=== PATIENT | male | born 1975 | race Caucasian/White ===

== ENCOUNTER 2016-11-25 02:05 | Observation (INO) ==
[2016-11-25] MEDS ORDERED: *HR* OxyCODONE Immed Rel 5 MG TABLET PO PRN (03:51)
[2016-11-25] MEDS ORDERED: Benzonatate 100 MG CAPSULE PO PRN (03:51)
[2016-11-25] MEDS ORDERED: *HR* Promethazine 25 MG/ML VIAL IVP PRN (03:51)
[2016-11-25] MEDS ORDERED: Naloxone 0.4 MG/ML INJ IVP PRN (03:51)
[2016-11-25] MEDS ORDERED: *HR* Morphine 2 MG/ML SYRINGE IVP PRN (03:51)
--- NOTE | 2016-11-25 04:08 | Internal Med History&Physical ---
Date of Encounter: 11/25/16 Time of Encounter: 03:45 Assessment and Plan (1) Cholestasis Current visit: Yes Status: Acute . (2) Acute cholestatic jaundice syndrome Current visit: Yes Status: Acute . (3) IVDU (intravenous drug user) Current visit: Yes Status: Chronic . (4) Transaminitis Current visit: Yes Status: Acute . (5) Acute hepatitis Current visit: Yes Status: Acute . (6) Nicotine dependence with nicotine-induced disorder Current visit: Yes Status: Chronic . Qualifiers: Nicotine product type: cigarettes Qualified Code(s): F17.219 - Nicotine dependence, cigarettes, with unspecified nicotine-induced disorders (7) Cholangitis Current visit: Yes Status: Acute . (8) Polysubstance (including opioids) dependence with physiol dependence Current visit: Yes Status: Chronic . (9) At risk for withdrawal Current visit: Yes Status: Acute . (10) At risk for abuse of opiates Current visit: Yes Status: Chronic . (11) At risk for acid-base imbalance Current visit: Yes Status: Acute (12) At risk for acute confusion Current visit: Yes Status: Acute . (13) Toxic metabolic encephalopathy Current visit: Yes Status: Acute . (14) Delirium due to conditions classified elsewhere Current visit: Yes Status: Acute . (15) Cholecystitis without cholelithiasis Current visit: Yes Status: Acute . (16) Chronic pain associated with significant psychosocial dysfunction Current visit: Yes Status: Chronic . (17) DDD (degenerative disc disease) Current visit: Yes Status: Chronic . Qualifiers: Spinal region: lumbar Qualified Code(s): M51.36 - Other intervertebral disc degeneration, lumbar region (18) Iron deficiency Current visit: Yes Status: Acute . (19) Protein-calorie malnutrition Current visit: Yes Status: Acute . (20) Hyponatremia with decreased serum osmolality Current visit: Yes Status: Acute Internal Medicine - H&P: HPI Chief complaint: Yellowing of skin and white's of the eyes Admitted From: Hospital to Hospital Transfer (Hospital transfer [facility] ED) Plans for Post Hospital Care: Home History of present illness: Mr. Aiken is a 41 year old male with history significant for IVDU (heroin), Chr LBP/ MSK pain syndrome, DDD of Lumbar spine/spondylitis/radiculitis/facet arthropathy, nicotine dependency. The patient was visited and interviewed and examined. Patient is received as a hospital transfer from [facility] emergency department he presented with concerns of jaundiced state. He said he had noticed his urine has become darker over the past week. He denied however any urinary symptoms at this frequency or urgency dysuria pyuria or flank pain and hematuria. He notes that the whites of his eyes also seemed to yellow the day of his presentation to the emergency room. His skin also had a slight yellow tinge to it. His history of similar events. Denied any abdominal pain nausea vomiting diarrhea constipation. Denied any bleeding episodes of hematemesis melena or epistaxis or blood per rectum or skin lesions. To his knowledge he had no prior history of any liver problems physically no history to his knowledge of hepatitis. He acknowledges intravenous drug use. He has been using heroin differentially for the last 6 months. His last acknowledged use approximately a week prior to presentation. He denies sharing his needles or paraphernalia. Denied any history of any intra-abdominal surgeries or recent hospitalizations prolonged bedrest recent travel sick contacts or recent unexplained illnesses. Does report some feeling of chills and malaise but no fever. Reports being on and off Suboxone over the last 2 months in order to treat his opiate abuse. Denies any known chronic medical conditions or ongoing prescribed medications. He denies any [id number] drug use abuse, therapy is or other recreational drug uses. He denies any acknowledges history of exposure blood products blood transfusions or tattoos. Reports has not drank any alcohol in over 6 years. Neither any prior history in college. Alcohol use or binge drinking. Findings in the ED: temperature 98.4-99 pulse 73-76 respiration 16 BP 113-115/64-78. O2 saturation 96-99% room air. WBC 9.6 hemoglobin 12.7 platelets 441 pounds. MCV 79.4 MCH 27.3. RDW 21.3. Differential normal. PT 11.7 INR 1.1. Comprehensive metabolic panel Sodium 133 osmolality 273. BUN 6 creatinine 0.57. Carbon dioxide 21. Glucose 80. Total bilirubin 7.0. AST 680 ALT 682. Alkaline phosphatase 385. Albumin 2.9 total protein 6.5. Lipase 41. Urinalysis finds moderate bilirubin. CT abdomen /pelvis with IV contrast findings gallbladder wall thickening with extensive edema. Hyperemic gallbladder wall. Surrounding the gallbladder, sumanth hepatis with suspected common bile duct enhancement concerning for cholangitis. Periportal edema. No cholelithiasis or biliary dilatation. Pancreas spleen and adrenal glands normal. Lung bases clear. Heart and pericardium unremarkable. Preliminary impression suggest acute hepatitis with cholestasis and cholestatic jaundice. Radiographic findings suggestive of cholangitis unspecified and likely cholecystitis unspecified. This deserves further investigation. No findings suggestive of cholelithiasis or ductal dilatation suggestive of stone-induced obstruction. Differential diagnoses include rule out primary sclerosing cholangitis versus primary biliary cholangitis versus infectious/inflammatory cholangitis(cholecystitis) with obstruction versus HCC/ cholangiocarcinoma with obstruction. Systemic inflammatory response/sepsis criteria are not present at the time of admission. The patient does not appear acutely ill beyond his jaundiced state and chemistry abnormalities. He is mildly encephalopathic consistent with his recent drug use and risk for withdrawal. He does present further risk for acute clinical decline and morbidity given his presenting complaints, findings and comorbidities. Workup and treatment will proceed comprehensively. Cumulative laboratory and radiographic data base was reviewed, considered and discussed. Pertinent ancillary medical records including ECW and PCI documentation was reviewed and considered. Given the patient's presenting concerns, past medical history, clinical findings and symptoms, he is admitted at this time will undergo further evaluation and disposition. Orders were written as per the computerized physician mail order biller system.......................................................................... .................... Consultative opinions will be sought as clinical circumstances justify. Pain management needs will be addressed. Laboratory and radiographic data base will be updated as appropriate. Studies include: Cultures of blood and urine, PT/INR, APTT, cardiac injury panel, BNP, LDH, acute hepatitis (ABC) profile, MARISOL, RF, acetaminophen, ethanol, metabolic and hematologic panel, magnesium, phosphorus, ionized calcium, thyroid panel, lipid profile, A1c, C-peptide, CRP, sedimentation rate, monospot, blood gas, lactic acid, UA, UDS, HIV + p24, prealbumin, iron profile, serologies, etc. Precautions: Aspiration, fall, seizure, delirium protocol/surveillance initiated. Telemetry with continuous hemodynamic monitoring and pulse oximetry initiated. Empiric antibody coverage: Intravenous Rocephin pending culture data. Special studies: CT abd/pelvis, US gall bladder, MRCP, chest x-ray, telemetry, EKG. Pulmonary toilet: Incentive spirometry. Aerosol bronchodilator, mucolytic, antitussive PRN. Supplemental oxygen. Corticosteroid therapy PRN. CPAP/BiPAP supplemental oxygen delivery PRN. Aerosol Mucomyst therapy PRN. Fluid and electrolyte repletion efforts will proceed. Careful attention to fluid balance and renal recovery will be emphasized. Avoidance of nephrotoxic exposure and adverse drug drug interaction in the setting of impaired renal function will be monitored closely. Acute coronary syndrome protocol/surveillance initiated. Gridley withdrawal (drug) protocols initiated. Gridley body fluid precautions initiated. DVT and PUD prophylaxis initiated: PPI therapy, intermittent pneumatic cuff/ TEDs. Subcutaneous heparin. Early ambulation will be encouraged. Immunization updates recommended. Influenza and pneumococcal vaccinations as part of ongoing preventative healthcare recommendations strongly recommended. Smoking cessation counseling briefly addressed. Patient accepts nicotine substitution during this hospitalization. Advanced care directive discussion briefly addressed. Patient does not declare any healthcare restrictions at this time. Cardiovascular risk appraisal and cardiovascular risk reduction efforts will be emphasized. Physical and occupational therapy may be consulted to evaluate/assess patient's functional capacity and progress mobility if circumstances justify. Nutrition/dietary education counseling may be considered as circumstances justify. Outpatient medication schedules will be reviewed, confirmed and facilitated as appropriate. Reconciliation of home treatments including adjustments, substitutions and reintroduction into the treatment regimen will address necessary maintenance therapies for chronic pre-existing medical conditions. Plan of care has been reviewed and discussed in detail with the patient. Questions addressed. Hospital course will depend upon clinical findings, treatment response and potential consultative interventions. Patient is at risk for further acute clinical decline and morbidity due to his presenting chief complaints, findings and comorbid conditions. media services specialist/case management consultation for assessment of outpatient drug rehabilitation referral options. Condition is serious. Prognosis is guarded. CODE STATUS is full. Past Med Surg Social Fam HX - Past Medical History Source: old records reviewed Medical history: arthritis, other (IVDU/polysubstance dependency/abuse.) Psychiatric history: no psych history, other - Past Surgical History Surgical History: non-contributory - Social History Smoking Status: Current every day smoker Smokeless Tobacco Status: No Alcohol use: none Drug use: opiates, IVDU, other Occupational status: unemployed Current living situation: With Family Activity Level: Independent ambulation, Mostly sedentary Recent Out of Country Travel Within the Last 8 Weeks: No Exposure or Possible Exposure to Illness During Travel: No Internal Medicine - H&P: Meds No Known Home Drugs 11/24/16 [History] Allergies No Known Allergies Allergy (Verified 11/25/16 09:26) All Systems PM: A 10-system review of systems was performed and is negative for pertinent findings except as documented above in the HPI. - Constitutional Constitutional: as per HPI, malaise, no chills, no fever(s), no night sweats - EENT Eyes: as per HPI, no change in vision, no discharge, no pain, no photophobia Ears: as per HPI, no ear discharge, no ear pain, no tinnitus Nose, mouth and throat: as per HPI, no dysphagia, no nasal discharge, no neck pain, no sore throat - Cardiovascular Cardiovascular ROS IM: as per HPI, no chest pain, no diaphoresis, no dyspnea, no lightheadedness, no palpitations, no syncope - Respiratory Respiratory: as per HPI, no cough, no dyspnea, no wheezing, no excessive phlegm production - Gastrointestinal Gastrointestinal: as per HPI, bloating, change in stool character, nausea, other , no abdominal pain, no diarrhea, no hematemesis, no hematochezia, no melena, no vomiting - Genitourinary Genitourinary ROS male: as per HPI, other - Musculoskeletal Musculoskeletal ROS IM: as per HPI, other, no numbness, no tingling - Integumentary Integumentary IM: as per HPI, jaundice, other, no rash, no unusual bruising - Neurological Neurological ROS: as per HPI, headache(s), other, no confusion, no convulsions, no focal weakness, no numbness, no tingling, no tremor(s) - Psychiatric Psychiatric: as per HPI, other - Endocrine Endocrine IM: as per HPI - Hematologic/Lymphatic Hematologic/Lymphatic: as per HPI, no easy bruising - Allergic/Immunologic Allergic/Immunologic: as per HPI - Constitutional General appearance: Present: cooperative, mild distress, A&O X 3, underweight, answers questions appropriately - Head Head exam: Present: atraumatic, normal inspection, normocephalic - Eye Eye exam: Present: EOMI, PERRL, scleral icterus, conjuntiva pink. Absent: sclera anicteric Pupils: Present: normal accommodation, PERRL - ENT ENT exam: Present: mucous membranes moist, normal external ear exam, normal oropharynx - Neck Neck exam general surgery: Present: full ROM, supple, trachea midline. Absent: lymphadenopathy, tenderness, nuchal rigidity - Respiratory Respiratory exam: Present: decreased breath sounds, CTAB. Absent: accessory muscle use, rales, rhonchi, stridor, wheezes - Cardiovascular Cardiovascular exam: Present: distant heart sounds, RRR, +S1, +S2. Absent: diastolic murmur, gallop, rubs, systolic murmur - GI/Abdominal GI/Abdominal exam: Present: normal bowel sounds, soft, no peritoneal signs. Absent: distended, mass, tenderness - Extremities Exam Extremities exam: Present: full ROM, warm, radial pulses palpable and symetrical. Absent: calf tenderness, cyanotic, pedal edema - Neurological Exam Neurological exam: Present: alert, CN II-XII intact, oriented X3, no focal deficits. Absent: pronater drift, facial droop, speech deficit - Expanded Neurological Exam Neurological exam expanded: Present: inattentive, protecting the airway. Absent : ataxia, expressive aphasia, receptive aphasia, tremor Patient oriented to: Present: person, place, time Speech: Present: fluid speech Coma Scale Eye Opening: Spontaneous Coma Scale Motor Response: Obeys Commands Coma Scale Verbal Response: Confused Coma Scale Total: 14 - Psychiatric Psychiatric exam: Present: anxious, normal affect, normal mood - Skin Skin exam: Present: dry, intact, warm. Absent: normal color, petechiae, rash, urticaria, vesicles Internal Med - H&P Results - Impressions Vital Signs Temp Pulse Resp BP Pulse Ox 11/25/16 04:08 98.6 F 69 16 97/60 97 Intake and Output 11/24/16 11/24/16 11/25/16 15:59 23:59 07:59 Other: Weight 68.765 kg Patient Weight 11/25/16 23:59 Weight 68.765 kg Allergies Allergy/AdvReac Type Severity Reaction Status Date / Time No Known Allergies Allergy Verified 11/24/16 22:11 Abnormal lab results ESR 46 mm/hr (0-10) H 11/25/16 04:52 VBG pH 7.43 pH Units (7.32-7.42) H 11/25/16 04:52 VBG pO2 62 mmHg (25-40) H 11/25/16 04:52 VBG HCO3 27.9 mEq/L (21-27) H 11/25/16 04:52 Ionized Calcium 1.13 mmol/L (1.15-1.35) L 11/25/16 04:52 Magnesium 1.5 mg/dL (1.6-2.6) L 11/25/16 04:52 Total Bilirubin 7.7 mg/dL (0.2-1.2) H 11/25/16 04:52 Direct Bilirubin 5.7 mg/dL (0.0-0.5) H 11/25/16 04:52 Indirect Bilirubin 2.0 mg/dL (0.0-1.2) H 11/25/16 04:52 C-Reactive Protein 9 mg/L (Less than 5) H 11/25/16 04:52 Triglycerides 283 mg/dL (< 150) H 11/25/16 04:52 Cholesterol 394 mg/dL (< 200) H 11/25/16 04:52 LDL Cholesterol, Calc 330 mg/dL (0-99) H 11/25/16 04:52 VLDL Cholesterol, Calc 57 mg/dL (< 31) H 11/25/16 04:52 HDL Cholesterol 7 mg/dL (40-59) L 11/25/16 04:52 Cholesterol/HDL Ratio 56.3 (0-4.9) H 11/25/16 04:52 Salicylates < 5.0 mg/dL (15-30) L 11/25/16 04:52 Acetaminophen < 1.0 mcg/mL (10-30) L 11/25/16 04:52 Hep Bs Antigen Reactive (Nonreactive) H 11/25/16 04:52 Hep B Core IgM Ab Reactive (Nonreactive) H 11/25/16 04:52 Hepatitis C Ab Screen Reactive (Nonreactive) H 11/25/16 04:52 Allergies Allergy/AdvReac Type Severity Reaction Status Date / Time No Known Allergies Allergy Verified 11/25/16 09:26 Laboratory Results ESR 46 mm/hr (0-10) H 11/25/16 04:52 APTT 33.6 Seconds (26.0-36.0) 11/25/16 04:52 VBG pH 7.43 pH Units (7.32-7.42) H 11/25/16 04:52 VBG pCO2 42 mmHg (41-51) 11/25/16 04:52 VBG pO2 62 mmHg (25-40) H 11/25/16 04:52 VBG HCO3 27.9 mEq/L (21-27) H 11/25/16 04:52 Lactic Acid 0.7 mmol/L (0.5-2.2) 11/25/16 04:52 Ionized Calcium 1.13 mmol/L (1.15-1.35) L 11/25/16 04:52 Phosphorus 3.3 mg/dL (2.3-4.7) 11/25/16 04:52 Magnesium 1.5 mg/dL (1.6-2.6) L 11/25/16 04:52 Total Bilirubin 7.7 mg/dL (0.2-1.2) H 11/25/16 04:52 Direct Bilirubin 5.7 mg/dL (0.0-0.5) H 11/25/16 04:52 Indirect Bilirubin 2.0 mg/dL (0.0-1.2) H 11/25/16 04:52 Ammonia 49 mcmol/L (18-72) 11/25/16 08:09 C-Reactive Protein 9 mg/L (Less than 5) H 11/25/16 04:52 Triglycerides 283 mg/dL (< 150) H 11/25/16 04:52 Cholesterol 394 mg/dL (< 200) H 11/25/16 04:52 LDL Cholesterol, Calc 330 mg/dL (0-99) H 11/25/16 04:52 VLDL Cholesterol, Calc 57 mg/dL (< 31) H 11/25/16 04:52 HDL Cholesterol 7 mg/dL (40-59) L 11/25/16 04:52 Cholesterol/HDL Ratio 56.3 (0-4.9) H 11/25/16 04:52 Amylase 58 Units/L (25-125) 11/25/16 04:52 Lipase 32 Units/L (8-78) 11/25/16 04:52 TSH 0.407 mcIU/mL (0.350-4.840) 11/25/16 04:52 Salicylates < 5.0 mg/dL (15-30) L 11/25/16 04:52 Urine Opiates Screen Negative ng/mL (Utqzqx=741) 11/25/16 11:25 Acetaminophen < 1.0 mcg/mL (10-30) L 11/25/16 04:52 Ur Barbiturates Screen Negative ng/mL (Kzgujf=231) 11/25/16 11:25 Ur Phencyclidine Scrn Negative ng/mL (Cutoff=25) 11/25/16 11:25 Ur Amphetamines Screen Negative ng/mL (Piwlxy=7211) 11/25/16 11:25 U Benzodiazepines Scrn Negative ng/mL (Uofgdd=299) 11/25/16 11:25 Urine Cocaine Screen Negative ng/mL (Cutoff= 300) 11/25/16 11:25 U Marijuana (THC) Screen Negative ng/mL (Cutoff = 50) 11/25/16 11:25 Ethyl Alcohol < 10 mg/dL (0-10) 11/25/16 04:52 Rheumatoid Factor < 15 IU/mL (0-29) 11/25/16 04:52 EBV Capsid Ag IgM Ab Negative (Negative) 11/25/16 08:09 Hepatitis A IgM Ab Nonreactive (Nonreactive) 11/25/16 04:52 Hep Bs Antigen Reactive (Nonreactive) H 11/25/16 04:52 Hep B Core IgM Ab Reactive (Nonreactive) H 11/25/16 04:52 Hepatitis C Ab Screen Reactive (Nonreactive) H 11/25/16 04:52 HIV Ag/Ab Combo Qual Nonreactive (Nonreactive) 11/25/16 08:09 Infectious Merrick Assay Negative (Negative) 11/25/16 08:09 Impressions Abdomen MRI 11/25/16 07:00 IMPRESSION: Severe periportal edema with gallbladder wall thickening, perihepatic ascites and inflammation in the sumanth hepatis. Findings suggest acute hepatitis. Cholangitis is also in the differential diagnosis. No significant biliary ductal dilatation or gallbladder distention. No evidence of choledocholithiasis. Unremarkable pancreatic duct. D/ / 11/25/2016 11:34:57 Brian Montoya MD / hemant Interpreting Provider: Brian Montoya MD Gallbladder Ultrasound 11/25/16 08:30 IMPRESSION: 1. Mildly prominent pancreatic duct measuring 3 mm. 2. Nonspecific, extensive gallbladder wall thickening and mild pericholecystic fluid. No definite evidence of cholelithiasis. D/ / 11/25/2016 10:09:29 Francine Jordan MD / param Interpreting Provider: Francine Jordan MD
[2016-11-25 05:10] LABS: VBG HCO3 27.9 mEq/L (21-27); VBG PH 7.43 pH Units (7.32-7.42)
[2016-11-25 05:30] LABS: Amylase 58 Units/L (25-125); Chol/HDL Ratio 56.3 (0-4.9); Cholesterol 394 mg/dL (< 200); HDL Cholesterol 7 mg/dL (40-59); LDL Cholesterol,Calculated 330 mg/dL (0-99); Lipase 32 Units/L (8-78); Phosphorous 3.3 mg/dL (2.3-4.7); Triglycerides 283 mg/dL (< 150)
[2016-11-25 05:35] LABS: Bilirubin,Direct 5.7 mg/dL (0.0-0.5)
[2016-11-25 05:37] LABS: Bilirubin,Total 7.7 mg/dL (0.2-1.2)
[2016-11-25 05:42] LABS: Acetaminophen < 1.0 mcg/mL (10-30); Ethanol < 10 mg/dL (0-10); Magnesium 1.5 mg/dL (1.6-2.6); Salicylate < 5.0 mg/dL (15-30)
[2016-11-25 05:47] LABS: Rheumatoid Factor < 15 IU/mL (0-29)
[2016-11-25 05:51] LABS: Thyroid Stimulating Hormone 0.407 mcIU/mL (0.350-4.840)
[2016-11-25 05:53] LABS: C-Reactive Protein 9 mg/L (Less than 5)
[2016-11-25 06:01] LABS: Ionized Calcium 1.13 mmol/L (1.15-1.35)
[2016-11-25] MEDS: *HR* Heparin 5,000 UNIT/ML VIAL SQ SCH ×3 (06:09→22:01)
[2016-11-25] MEDS: 0.9 % Sodium Chloride 1,000 ML IVC SCH ×2 (06:09→22:01)
[2016-11-25] MEDS: Pantoprazole 40 MG VIAL IVP SCH (06:09)
[2016-11-25] MEDS ORDERED: *HR* LORazepam 2 MG/ML VIAL IVP PRN ×3 (07:24→10:48)
[2016-11-25] MEDS ORDERED: Magnesium Sulfate 2 GM in D5% in Water 100 ML IVPB ONE (08:32)
[2016-11-25] MEDS ORDERED: Calcium Gluconate 3,000 MG in D5% in Water 250 ML IVPB ONE (08:33)
[2016-11-25] MEDS: Folic Acid 1 MG TABLET PO SCH (12:17)
[2016-11-25] MEDS: Vitamin B Complex/Vit C/Vit E 1 EACH TABLET PO SCH (12:17)
[2016-11-25] MEDS: Thiamine (B-1) 100 MG TABLET PO SCH (12:17)
[2016-11-25] MEDS: Nicotine 21 MG PATCH.TD24 TD SCH (12:18)
[2016-11-25 12:20] LABS: Hepatitis A Antibody IgM Nonreactive (Nonreactive)
[2016-11-25 12:34] LABS: Amphetamine Screen,Urine Negative ng/mL (Cutoff=1000); Barbiturate Screen,Urine Negative ng/mL (Cutoff=200); Benzodiazepines Screen,Urine Negative ng/mL (Cutoff=200); Cannabinoid Screen,Urine Negative ng/mL (Cutoff = 50); Cocaine Screen,Urine Negative ng/mL (Cutoff= 300); Opiate Screen,Urine Negative ng/mL (Cutoff=300); Phencyclidine Screen,Urine Negative ng/mL (Cutoff=25)
[2016-11-25 13:11] LABS: Hepatitis B Core IgM Reactive (Nonreactive); Hepatitis B Surface Antigen Reactive (Nonreactive); Hepatitis C Virus Antibody Reactive (Nonreactive)
--- NOTE | 2016-11-25 16:52 | Event Note ---
Date of Encounter: 11/25/16 Time of Encounter: 14:00 41-year-old male with history of IV drug abuse, chronic smoker admitted with worsening jaundice. Labs in the emergency room reviewed, noted to have significantly elevated liver enzymes and bilirubin. Lipid profile shows elevated triglycerides and cholesterol. Noted to have low serum magnesium and calcium. CT abdomen shows possible cholangitis. Patient seen and examined at bedside. Reports no abdominal pain, nausea, vomiting, diarrhea. Slightly drowsy but arousable, answers appropriately. Oriented 3. Chest-S1, S2 heard. Lungs are clear to auscultation. Abdomen/soft, nondistended, nontender. Skin-mild jaundice along with mild bilateral scleral icterus. Patient underwent a right upper quadrant ultrasound which shows gallbladder wall thickening with no gallstones and no definite evidence of acute cholecystitis. MRCP shows changes suggestive of acute hepatitis. Serologies shows positive hepatitis B surface antigen and hepatitis B IgM antibody, hepatitis C antibody screen positive. Patient's acute hepatitis could be related to resolving hepatitis B infection, given his risk factors with IV drug abuse. We will consult GI for further recommendations. Continue IV hydration and supportive care. Patient does not appear septic or toxic at this time. Continue to monitor LFTs.
[2016-11-26 06:39] LABS: Basophils # 0.1 K/mcL (0.0-0.2); Basophils % 0.9 %; Eosinophils # 0.2 K/mcL (0.0-0.6); Eosinophils % 2.3 %; Hematocrit 34.8 % (37.5-50.1); Hemoglobin 11.9 g/dL (12.9-16.9); Immature Granulocytes % 0.2 % (0-4); Lymphocytes # 2.8 K/mcL (0.6-4.6); Lymphocytes % 32.4 %; Mean Corpuscular HGB Conc 34.2 g/dL (31.6-35.5); Mean Corpuscular Hemoglobin 27.5 pg (28.0-33.3); Mean Corpuscular Volume 80.6 fL (83.0-100.0); Mean Platelet Volume 10.8 fL (9.4-12.4); Monocytes # 0.6 K/mcL (0.0-1.3); Monocytes % 7.2 %; Neutrophils # 4.9 K/mcL (1.6-8.9); Platelet Count 504 K/mcL (140-400); Red Blood Count 4.32 M/mcL (4.19-5.50); Red Cell Distribution Width 22.1 % (11.5-14.5)
[2016-11-26] MEDS: Pantoprazole 40 MG VIAL IVP SCH (06:43)
[2016-11-26] MEDS: *HR* Heparin 5,000 UNIT/ML VIAL SQ SCH (06:43)
[2016-11-26 07:02] LABS: BUN/Creatinine Ratio 7 (6-26); Bilirubin,Total 6.2 mg/dL (0.2-1.2); Calcium 8.3 mg/dL (8.6-10.8); Carbon Dioxide 22 mEq/L (19-29); Chloride 107 mEq/L (98-109); Glucose 136 mg/dL (70-99); Magnesium 1.6 mg/dL (1.6-2.6); Osmolality,Calculated 283 (280-300); Potassium 3.5 mEq/L (3.5-4.5); Sodium 137 mEq/L (136-145); eGFR For African Americans > 60 (> 60); eGFR For Non-African Americans > 60 (> 60)
[2016-11-26 07:03] LABS: Alanine Aminotransferase 546 Units/L (0-55); Albumin 2.4 g/dL (3.5-5.0); Albumin/Globulin Ratio 0.8 (1.1-2.2); Alkaline Phosphatase 384 Units/L (38-126); Aspartate Amino Transferase 526 Units/L (5-34); Bilirubin,Indirect 1.7 mg/dL (0.0-1.2); Globulin 3.2 g/dL (2.4-3.5); Total Protein 5.6 g/dL (6.0-8.3)
[2016-11-26 07:09] LABS: Bilirubin,Direct 4.5 mg/dL (0.0-0.5); Blood Urea Nitrogen 4 mg/dL (8-26)
--- NOTE | 2016-11-26 07:44 | ECHO - Doppler Report ---
Echocardiogram Name: Baldev Aiken Date of Study: 11/25/2016 Date: 1975 Ht: 72.0 in Medical Record#: [id number] Age: 41 Wt: 150.0 lb Gender: Male BSA: 1.89 Order #: [id number] Location: [facility] Room #: 3A31 Reading Physician: Tonio Simpson MD, [facility] Denture Waxer: Talia Grady RVT Ordering Physician: Peterson Wade MD Primary Physician: Marisol Pham CNP Indications: IV Drug Abuser Impressions: Normal left ventricular size and systolic function, LVEF 65%. Normal left ventricular diastolic function. Normal right ventricular size and function. No significant valvular dysfunction. No evidence of pulmonary hypertension. Left Ventricular Wall Motion: Rest Echo Findings All wall segments showed normal motion. Findings: Study Quality * Technically adequate exam. ECG Findings * Normal sinus rhythm. Left Ventricle * Normal left ventricular size and systolic function, LVEF 65%. * Normal LV wall thickness. * Normal left ventricular diastolic function. Right Ventricle * Normal right ventricular size and function. Left Atrium * Normal left atrial size. Right Atrium * Normal right atrial size. Aorta * Normally sized aortic root. Pericardium * There is no pericardial effusion present. IVC * Normal IVC dimensions and inspiratory collapse. Aortic Valve * Trileaflet aortic valve. * No aortic stenosis. * No aortic regurgitation. Mitral Valve * Normal mitral valve structure. * No mitral stenosis. * No mitral regurgitation. Tricuspid Valve * Normal tricuspid valve structure. * No tricuspid stenosis. * Trace tricuspid regurgitation. * No evidence of pulmonary hypertension. Pulmonic Valve * Pulmonic valve not well visualized. * No pulmonic stenosis. * No pulmonic regurgitation. Measurements: BP: 107/ 64 2D Normal Values RVIDd: 3.30 cm IVSd: .70 cm 0.6 - 1.0 cm LVIDd: 5.40 cm 3.7 - 5.6 cm LVPWd: .70 cm 0.6 - 1.1 cm LVIDs: 3.80 cm 1.5 - 3.6 cm AO: 3.50 cm < 4.0 cm %FS: 29.60 cm >25 % LA volume: 56 Mitral Valve Peak E:.88 m/sec Peak A:.47 m/sec E/A Ratio:1.9 Tricuspid Valve TV Regurg Peak Grad: 24.00mmHg TV Regurg Peak Juan: 2.47m/sec Updated by Tonio Simpson MD, [facility] on 11/26/2016 7:40:12 AM electronically signed on 11/26/2016 7:41:01 AM with status of Final Wall Motion Shah: 1=Normal, 2=Hypokinesis, 3=Akinesis, 4=Dyskinesis, 5=Aneurysmal, 6=Hyperkinetic, X=Not Visualized (Blank)=Missing
[2016-11-26] MEDS: Vitamin B Complex/Vit C/Vit E 1 EACH TABLET PO SCH (08:00)
[2016-11-26] MEDS: Folic Acid 1 MG TABLET PO SCH (08:00)
[2016-11-26] MEDS: Thiamine (B-1) 100 MG TABLET PO SCH (08:00)
[2016-11-26] MEDS: Nicotine 21 MG PATCH.TD24 TD SCH (08:01)
[2016-11-26] MEDS: 0.9 % Sodium Chloride 1,000 ML IVC SCH (08:05)
[2016-11-26] MEDS ORDERED: Ketorolac 30 MG/ML VIAL IVP PRN (09:15)
[2016-11-26 09:21] LABS: % Iron Saturation 17 % (20-55); Iron 71 mcg/dL (65-175); Transferrin 297 mg/dL (174-364)
[2016-11-26 09:23] LABS: % Iron Saturation 19 % (20-55); Iron 81 mcg/dL (65-175); Transferrin 297 mg/dL (174-364)
--- NOTE | 2016-11-26 09:47 | Gastroenterology Consult Note ---
Date of Encounter: 11/26/16 Time of Encounter: 11:05 - Assessment and plan (1) Anemia Current Visit: Yes Status: Chronic Assessment and plan: Microcytic, awaiting iron profile. Continue to monitor. If remains anemic, consider OTPT endoscopy to r/o GIB. Qualifiers: Anemia type: unspecified type Qualified Code(s): D64.9 - Anemia, unspecified (2) Acute hepatitis Current Visit: Yes Status: Acute Assessment and plan: + Hep B, screen positive Hep C. Ordered confirmatory testing. Check Hep D. F/U in [facility] GI clinic. (3) IVDU (intravenous drug user) Current Visit: Yes Status: Chronic - Time Spent With Patient Total time spent is greater than 50% in coordination of care (as documented) at patient's floor/unit and/or counseling patient: less than 15 minutes GI History of Present Illness - Data of Consult Patient: new to practice Consult date: 11/26/16 Requesting Physician: Meron Wallace MD - Consult Narrative Reason for consult: elevated LFTs, hyperbilirubinemia, +viral hep scrn History of present illness: Mr. Aiken is a 41 year old male with a PMH of IVDU, back pain, DDD, tobacco abuse. He presents with acute onset jaundice. Denies any other GI-related issue at time of his admission. He uses heroin routinely, last use approximately one week ago. He denies etoh use or etoh history. Noted dark urine approximately one week prior to admission, yellowing in eyes one day prior. Bilirubin 7.7 at time of admission, now 6.2. AST 526, ALT 546, alk phos 384. Positive for Hep B, positive screen for Hep C. Imaging supports diagnosis of acute viral hepatitis. Hgb dropped from 12.7 to current 11.9, microcytic in nature. Patient denies any GI symptoms at this time. Colonoscopy: None noted EGD: None noted Past Med Surg Social Fam HX - Past Medical History Medical history: arthritis, other (IVDU/polysubstance dependency/abuse.) Psychiatric history: no psych history, other - Past Surgical History Surgical History: non-contributory - Social History Smoking Status: Current every day smoker Packs per day: 1/2 pack Smokeless Tobacco Status: No Alcohol use: none Drug use: opiates, IVDU, other - Gastrointestinal NSAID use: None Anticoagulation Use: None Number of BM Per Day: daily Gastrointestinal: Present: as per HPI - Constitutional Constitutional: as per HPI - EENT Eyes: Yellow Discoloration Ears: Present: as per HPI Nose, mouth and throat: Present: as per HPI - Cardiovascular Cardiovascular ROS: Present: as per HPI - Respiratory Respiratory IM: Present: as per HPI - Genitourinary Genitourinary: Present: change in color - Neurological ROS Neurological GI: Present: as per HPI - Hematologic/Lymphatic Hematologic/Lymphatic pediatric: Present: as per HPI - Musculoskeletal Musculoskeletal ROS GI: Present: as per HPI - Integumentary Integumentary GI: Present: jaundice - Psychiatric ROS Psychiatric GI: Present: as per HPI - Endocrine Endocrine IM: Present: as per HPI - Constitutional Vitals: Temp Pulse Resp BP Pulse Ox 97.4 F L 56 12 102/63 99 11/26/16 07:04 11/26/16 07:04 11/26/16 07:04 11/26/16 07:04 11/26/16 07:04 General appearance: Present: cooperative, A&O X 3, no acute distress, answers questions appropriately - Head Head exam: Present: atraumatic, normocephalic - Eye Eye exam: Present: scleral icterus - ENT ENT exam: Present: mucous membranes moist - Neck Neck exam general surgery: Present: normal inspection, trachea midline - Respiratory Respiratory exam: Present: CTAB - Cardiovascular Cardiovascular exam: Present: RRR, +S1, +S2 - GI/Abdominal GI/Abdominal exam: Present: normal bowel sounds, soft, no peritoneal signs - Rectal Rectal exam: Present: deferred - Extremities Exam Extremities exam: Present: warm - Neurological Exam Neurological exam: Present: no focal deficits - Psychiatric Psychiatric exam: Present: normal affect, normal mood - Skin Additional comments: jaundice Results - Labs CBC & Chem 7: 11/26/16 05:35 11/26/16 05:35 Labs: Last Result ESR 46 mm/hr (0-10) H 11/25/16 04:52 Calcium 8.3 mg/dL (8.6-10.8) L 11/26/16 05:35 Iron 81 mcg/dL (65-175) 11/26/16 09:00 % Saturation 19 % (20-55) L 11/26/16 09:00 Transferrin 297 mg/dL (174-364) 11/26/16 09:00 C-Reactive Protein 9 mg/L (Less than 5) H 11/25/16 04:52 Triglycerides 283 mg/dL (< 150) H 11/25/16 04:52 Salicylates < 5.0 mg/dL (15-30) L 11/25/16 04:52 Urine Opiates Screen Negative ng/mL (Nmxyqe=564) 11/25/16 11:25 Entire Visit Hgb 11.9 g/dL (12.9-16.9) L 11/26/16 05:35 Hct 34.8 % (37.5-50.1) L 11/26/16 05:35 Total Bilirubin 6.2 mg/dL (0.2-1.2) H 11/26/16 05:35 AST 526 Units/L (5-34) H 11/26/16 05:35 ALT 546 Units/L (0-55) H 11/26/16 05:35 Ammonia 49 mcmol/L (18-72) 11/25/16 08:09 Amylase 58 Units/L (25-125) 11/25/16 04:52 Lipase 32 Units/L (8-78) 11/25/16 04:52 Acetaminophen < 1.0 mcg/mL (10-30) L 11/25/16 04:52 - Impressions Impressions Abdomen MRI 11/25/16 07:00 IMPRESSION: Severe periportal edema with gallbladder wall thickening, perihepatic ascites and inflammation in the sumanth hepatis. Findings suggest acute hepatitis. Cholangitis is also in the differential diagnosis. No significant biliary ductal dilatation or gallbladder distention. No evidence of choledocholithiasis. Unremarkable pancreatic duct. D/ / 11/25/2016 11:34:57 Brian Montoya MD / [facility] Inter[facility]ting Provider: Brian Montoya MD Gallbladder Ultrasound 11/25/16 08:30 IMPRESSION: 1. Mildly prominent pancreatic duct measuring 3 mm. 2. Nonspecific, extensive gallbladder wall thickening and mild pericholecystic fluid. No definite evidence of cholelithiasis. D/ / 11/25/2016 10:09:29 Francine Jordan MD / param Interpreting Provider: Francine Jordan MD Consult Discharge Plan - Plan Additional Instructions: Follow-up with [facility] in 1-2 weeks F/up with PCP in 2 weeks Referrals: Marisol Pham CNP [Primary Care Provider] - 12/01/16 1:40 pm Nicole De La Vega CNP [Advanced Practice Nurse] - 12/03/16 3:00 pm Prescriptions: Omeprazole [PriLOSEC] 20 mg PO DAILY #30 cap
--- NOTE | 2016-11-26 11:24 | Discharge Summary ---
Date of Encounter: 11/26/16 Time of Encounter: 09:40 - Discharge Diagnosis (1) Acute hepatitis Priority: Primary Status: Acute (2) Anemia Priority: Primary Status: Chronic Qualifiers: Anemia type: unspecified type Qualified Code(s): D64.9 - Anemia, unspecified (3) IVDU (intravenous drug user) Priority: Secondary Status: Chronic (4) Nicotine dependence with nicotine-induced disorder Priority: Secondary Status: Chronic Qualifiers: Nicotine product type: cigarettes Qualified Code(s): F17.219 - Nicotine dependence, cigarettes, with unspecified nicotine-induced disorders - Discharge Medications Prescriptions: Omeprazole [PriLOSEC] 20 mg PO DAILY #30 cap Home Medications: Omeprazole [PriLOSEC] 20 mg PO DAILY #30 cap 11/26/16 [Rx] Allergies/Adverse Reactions: Allergies No Known Allergies Allergy (Verified 11/25/16 09:26) Procedures/tests Complete & Pending: Procedures Performed prior 72 hours Category Date Time Status US gall bladder [US] Routine Exams 11/25/16 08:30 Draft MR MRCP [MR abdomen wo con] [MR] Routine MRI 11/25/16 07:00 Draft EV echocardiogram Stat Y 11/25/16 07:24 Completed Date of admission: 11/25/16 03:32 Primary care physician: Marisol Pham CNP Consults: 11/25/16 07:24 Consult to Industrial Property Appraiser [CONS] Routine Reason for SW Consult: IVDU/polysubstance abuse... 11/25/16 15:58 Consult to Gastroenterology [CONS] Routine Consulting Provider: Gastroenterology Lisa Reason for Consult: Jaundice, acute hepatitis Call Completed: Yes Discharging clinician: Meron Wallace Anticipated date of discharge: 11/26/16 - Patient Status Disposition: Home, Self-Care Condition: Fair Functional capacity at discharge: independent ambulation Overall status at discharge: patient is progressing back to baseline - Discharge Instructions Follow Up With: Marisol Pham CNP [Primary Care Provider] - 12/01/16 1:40 pm Nicole De La Vega CNP [Advanced Practice Nurse] - 12/03/16 3:00 pm Additional Instructions: Follow-up with [facility] in 1-2 weeks F/up with PCP in 2 weeks - Diet and Activity Activity: resume usual activities as tolerated Diet: low fat, low cholesterol Hospital course: Mr. Aiken is a 41 year old male with history of IV drug abuse was admitted with jaundice. He was noted to have severely elevated liver enzymes and moderately elevated bilirubin. MRI abdomen done in the emergency room showed changes suggestive of acute hepatitis with or without cholangitis. Gallbladder ultrasound was done which showed gallbladder wall thickening with no evidence of gallstones. Patient had no fever or leukocytosis and remained hemodynamically stable. He was able to tolerate oral diet and did not report any abdominal pain, nausea or vomiting. Hepatitis C antibody screen was positive with pending confirmation test. He was also noted to be positive for hepatitis B surface antigen, hepatitis B core IgM. GI was consulted and patient was deemed stable for discharge with repeat LFTs as an outpatient in 5 days and follow up in GI clinic. Patient is medically stable for discharge. Time spent discussing smoking cessation with patient: 3 to 10 minutes - Time Spent with Patient Total time spent providing and/or coordinating discharge services: Greater than 30 minutes (45 min) - Constitutional Vitals: Temp Pulse Resp BP Pulse Ox 97.4 F L 56 12 102/63 99 11/26/16 07:04 11/26/16 07:04 11/26/16 07:04 11/26/16 07:04 11/26/16 07:04 General appearance: Present: A&O X 3, answers questions appropriately - Respiratory Respiratory exam: Present: CTAB. Absent: accessory muscle use, rales, rhonchi, wheezes - GI/Abdominal GI/Abdominal exam: Present: normal bowel sounds, soft, no peritoneal signs. Absent: distended, tenderness
[2016-11-26] MEDS ORDERED: FLU VACC QS2016-17 36MOS UP/PF 0.5 ML SYRINGE IM ONE (11:42)
[2016-11-26 12:14] LABS: Folate 11.8 ng/mL (7.0-31.4)
[2016-11-26 12:38] VITALS: BP 115/67
[2016-11-27 09:06] LABS: ANA IgG by ELISA NONE DETECTED (None Detected)
[2016-11-29 12:07] LABS: HCV Quant Interpretation DETECTED (Not Detected)
[2016-12-02 08:06] LABS: Hepatitis Delta Antibody NEGATIVE (Negative)
[2016-12-03 07:58] LABS: HCV Genotype by Sequencing 3A
== END 2016-11-26 13:41 | disposition home or self-care (01) ==
LOC: 3ANU
PROVIDERS: ADMIT Internal Medicine; ATTEND Internal Medicine